=== PATIENT | female | born 1960 | race Caucasian/White ===

== ENCOUNTER 2023-07-29 09:15 | Emergency (ER) | payer MEDICARE, OTHER ==
[~2023-07-29] VITALS: Ht 165.1 cm; Wt 109.8 kg
[2023-07-29 09:51] LABS: BASOPHILS % (AUTO) 0.5 % (0.0-2.0); EOSINOPHILS # (AUTO) 0.2 K/uL (0.0-0.7); EOSINOPHILS % (AUTO) 3.6 % (0.0-6.0); HEMATOCRIT 33 % (33-45); HEMOGLOBIN 11.2 g/dL (11.5-14.8); LYMPHOCYTES % (AUTO) 28.9 % (20.0-44.0); MEAN CORPUSCULAR HEMOGLOBIN 33 PG (26.0-33.0); MEAN CORPUSCULAR HGB CONC 34 g/dl (31.0-36.0); MEAN CORPUSCULAR VOLUME 97 fL (82-100); MONOCYTES # (AUTO) 0.4 K/uL (0.1-1.30); MONOCYTES % (AUTO) 5.5 % (2.0-12.0); NEUTROPHILS # (AUTO) 4.2 K/uL (1.8-8.9); NEUTROPHILS % (AUTO) 61.5 % (43.0-81.0); PLATELET COUNT (AUTO) 225 K/uL (150-450); RED BLOOD CELL COUNT(AUTO) 3.44 MIL/uL (4.0-5.2); RED CELL DISTRIBUTION WIDTH 13.3 % (11.5-15.0); WHITE BLOOD COUNT (AUTO) 6.8 K/uL (4.3-11.0)
[2023-07-29 09:55] LABS: CARBON DIOXIDE 27 mmol/L (21-32); CHLORIDE 106 mmol/L (98-107); CREATININE 1.2 mg/dL (0.6-1.3); GLUCOSE 97 mg/dL (74-106); POTASSIUM 4.2 mmol/L (3.5-5.1); SODIUM SERUM 140 mmol/L (136-145); UREA NITROGEN, BLOOD 19 mg/dL (7-18)
[2023-07-29 10:04] LABS: INR 0.97 (0.91-1.10)
[2023-07-29 10:07] LABS: ALANINE AMINOTRANSFERASE 33 U/L (12-78); ALBUMIN 3.8 g/dL (3.4-5.0); ALKALINE PHOSPHATASE 93 U/L (46-116); ASPARTATE AMINOTRANSFERASE 20 U/L (15-37); BILIRUBIN,DIRECT 0.1 mg/dL (0.0-0.2); BILIRUBIN,TOTAL 0.3 mg/dL (0.2-1.0); NT-PRO BNP 363 pg/mL (0-125); TOTAL PROTEIN, SERUM 8.6 g/dL (6.4-8.2)
[2023-07-29 10:17] LABS: D-DIMER 1.06 mg/L(FEU (0.17-0.50)
[2023-07-29] MEDS ORDERED: IOHEXOL-350 100 ML VIAL IV ONE (10:18)
[2023-07-29] MEDS ORDERED: IV NS 0.9% 250 ML IV ONE (10:19)
[2023-07-29] MEDS ORDERED: CT SWABBABLE VALVE TRANS SET 1 EA INFUS.SET MC ONE (10:19)
[2023-07-29 15:43] VITALS: BP 133/64; TEMP 97.7; O2SAT 100
== END 2023-07-29 15:43 | disposition home or self-care (01) ==
LOC: ER 10:01
DX: R07.89 Other chest pain (principal); Z87.19 Personal history of other diseases of the digestive system; Z87.09 Personal history of other diseases of the respiratory system; Z87.448 Personal history of other diseases of urinary system; Z90.49 Acquired absence of other specified parts of digestive tract; Z88.0 Allergy status to penicillin
CPT/HCPCS: 99285; 93970; 71275; 71045; 93005 ×2; 85025; 80048; 80076; 85378; 36415; 84484 ×2; 85730; 83880; J7050; Q9967